=== PATIENT | male | born 1975 | race Asian ===

== ENCOUNTER 2016-08-22 19:24 | Emergency (ER) | payer SELFPAY ==
[~2016-08-22] VITALS: Ht 190.5 cm; Wt 86.2 kg
[2016-08-22] MEDS ORDERED: NKM (19:37)
[2016-08-22 19:40] VITALS: BP 149/89
[2016-08-22] MEDS ORDERED: Dicyclomine HCl 10mg/5ml oral soln ORAL ONE (19:45)
[2016-08-22] MEDS ORDERED: Lidocaine 2% Visc 15ml soln ORAL ONE (19:45)
[2016-08-22] MEDS ORDERED: DuoNeb 0.5-3(2.5)mg/3ml neb HHN ONE (20:15)
[2016-08-22] MEDS ORDERED: Famotidine 20 MG/ 2ML VIAL IVP ONE (20:45)
--- NOTE | 2016-08-22 21:19 | Emergency Room Report ---
History of Present Illness General Chief Complaint: Chest Pain Source: Patient Present Illness HPI Patient is a 40-year-old male who presented after increased chest pain. Patient gradual onset of symptoms . Patient reported having sharp pain to the chest area. Patient also reported having multiple episodes of hematemesis. Patient stated he had vomited daily for the past 10 days. This was noted to have some blood. The patient had history of alcohol abuse and had been drinking alcohol for many days. He denied any fever. Allergies: Coded Allergies: No Known Allergies (Unverified , 08/22/16) Patient History Past Medical History: see triage record Reviewed Nursing Documentation: PMH: Agreed, PSxH: Agreed Nursing Documentation-PMH Past Medical History: No Stated History Review of Systems All Other Systems: negative except mentioned in HPI Physical Exam Vital Signs Date Time Temp Pulse Resp B/P Pulse Ox O2 Delivery O2 Flow Rate FiO2 08/22/16 19:35 77 16 149/89 96 Room Air 08/22/16 20:26 21 Sp02 EP Interpretation: reviewed, normal General Appearance: normal inspection, well appearing, no apparent distress, alert, GCS 15 Head: atraumatic ENT: normal ENT inspection, hearing grossly normal, normal voice Neck: normal inspection, full range of motion, supple, no bony tend Respiratory: normal inspection, lungs clear, normal breath sounds, no respiratory distress, no retraction, no wheezing Cardiovascular #1: regular rate, rhythm, no edema Gastrointestinal: normal inspection, normal bowel sounds, non tender, soft, no guarding, no hernia Genitourinary: no CVA tenderness Musculoskeletal: normal inspection, back normal, normal range of motion Neurologic: normal inspection, alert, oriented x3, responsive, roving changer III-XII nml as tested, speech normal Psychiatric: normal inspection, judgement/insight normal, mood/affect normal Skin: normal inspection, normal color, no rash Medical Decision Making Diagnostic Impression: Primary Impression: Gastritis ER Course Patient presented for chest pain. Differential diagnosis included but was not limited to acute coronary syndrome, pulmonary embolism, pneumonia, aortic dissection, shingles, pneumothorax, aortic dissection, esophageal rupture, pericarditis. Because of complexity of patient's case laboratory testing and imaging studies were ordered.The patient started on IV acid blockers. Patient was advised alcohol cessation. EKG interpreted by me showed NSR no acute st changes. CXR 1 view interpreted by me showed no pneumothorax, normal cardiac size, no effusion. Patient was advised alcohol cessation. He was advised to return for dizziness, increased amount of bleeding or other concerns. Labs Test 08/22/16 20:58 White Blood Count 9.8 K/UL (4.8-10.8) Red Blood Count 4.76 M/UL (4.70-6.10) Hemoglobin 16.6 G/DL (14.2-18.0) Hematocrit 45.7 % (42.0-52.0) Mean Corpuscular Volume 96 FL (80-99) Mean Corpuscular Hemoglobin 35.0 PG (27.0-31.0) Mean Corpuscular Hemoglobin Concent 36.3 G/DL (32.0-36.0) Red Cell Distribution Width 12.0 % (11.6-14.8) Platelet Count 206 K/UL (150-450) Mean Platelet Volume 8.6 FL (6.5-10.1) Neutrophils (%) (Auto) 58.5 % (45.0-75.0) Lymphocytes (%) (Auto) 31.5 % (20.0-45.0) Monocytes (%) (Auto) 7.2 % (1.0-10.0) Eosinophils (%) (Auto) 2.0 % (0.0-3.0) Basophils (%) (Auto) 0.8 % (0.0-2.0) Prothrombin Time 9.8 SEC (9.30-11.50) Prothromb Time International Ratio 1.0 (0.9-1.1) Activated Partial Thromboplast Time 25 SEC (23-33) Urine Color Pale yellow Urine Appearance Clear Urine pH 7 (4.5-8.0) Urine Specific [facility] 1.015 (1.005-1.035) Urine Protein Negative (NEGATIVE) Urine Glucose (UA) Negative (NEGATIVE) Urine Ketones Negative (NEGATIVE) Urine Occult Blood Negative (NEGATIVE) Urine Nitrite Negative (NEGATIVE) Urine Bilirubin Negative (NEGATIVE) Urine Urobilinogen 1 MG/DL (0.0-1.0) Urine Leukocyte Esterase Negative (NEGATIVE) Sodium Level 139 mEQ/L (135-145) Potassium Level 3.9 mEQ/L (3.4-4.9) Chloride Level 98 mEQ/L (98-107) Carbon Dioxide Level 26 mEQ/L (20-30) Anion Gap 15 (5-15) Blood Urea Nitrogen 15 mg/dL (7-23) Creatinine 1.0 mg/dL (0.7-1.2) Estimat Glomerular Filtration Rate > 60 mL/min (>60) Glucose Level 109 mg/dL (74-106) Calcium Level 9.4 mg/dL (8.6-10.2) Total Bilirubin 0.3 mg/dL (0.0-1.2) Aspartate Amino Transf (AST/SGOT) 16 U/L (5-40) Alanine Aminotransferase (ALT/SGPT) 12 U/L (3-41) Alkaline Phosphatase 76 U/L (40-129) Troponin I < 0.30 ng/mL (<=0.30) Total Protein 6.7 g/dL (6.6-8.7) Albumin 4.0 g/dL (3.5-5.2) Globulin 2.7 g/dL Albumin/Globulin Ratio 1.4 (1.0-2.7) Lipase 22 U/L (< 60) Last Vital Signs Date Time Temp Pulse Resp B/P Pulse Ox O2 Delivery O2 Flow Rate FiO2 08/22/16 20:27 68 18 100 Room Air 08/22/16 20:26 21 08/22/16 19:35 149/89 Status: improved Disposition: HOME, SELF-CARE Condition: Stable Scripts Famotidine (PEPCID) 20 Mg Tablet 20 MG ORAL DAILY, #14 TAB 0 Refills Prov: Jose Heredia 08/22/16 Jose Heredia August 22, 2016 21:19
[2016-08-22 21:25] LABS: BASOPHILS % (AUTO) 0.8 % (0.0-2.0); LYMPHOCYTES % (AUTO) 31.5 % (20.0-45.0); MEAN CORPUSCULAR HGB CONC 36.3 G/DL (32.0-36.0); MEAN CORPUSCULAR VOLUME 96 FL (80-99); MEAN PLATELET VOLUME 8.6 FL (6.5-10.1); MONOCYTES % (AUTO) 7.2 % (1.0-10.0); NEUTROPHILS % (AUTO) 58.5 % (45.0-75.0); PLATELET COUNT 206 K/UL (150-450); RED BLOOD COUNT 4.76 M/UL (4.70-6.10); WHITE BLOOD COUNT 9.8 K/UL (4.8-10.8)
[2016-08-22 21:33] LABS: APPEARANCE,URINE CLEAR; KETONES,URINE NEGATIVE (NEGATIVE); LEUKOCYTE ESTERASE ,URINE NEGATIVE (NEGATIVE); NITRITE,URINE NEGATIVE (NEGATIVE); PH,URINE 7 (4.5-8.0); PROTEIN,URINE NEGATIVE (NEGATIVE); UROBILINOGEN,URINE 1 MG/DL (0.0-1.0)
[2016-08-22 21:40] VITALS: BP 139/76
[2016-08-22 21:43] LABS: PROTHROMBIN TIME 9.8 SEC (9.30-11.50)
[2016-08-22] MEDS ORDERED: PEPCID20 MG ORAL (21:43)
[2016-08-22 21:51] LABS: ALANINE AMINOTRANSFERASE 12 U/L (3-41); ALBUMIN/GLOBULIN RATIO 1.4 (1.0-2.7); ANION GAP 15 (5-15); ASPARTATE AMINO TRANSFERASE 16 U/L (5-40); CALCIUM 9.4 mg/dL (8.6-10.2); CARBON DIOXIDE 26 mEQ/L (20-30); CHLORIDE 98 mEQ/L (98-107); GLOMERULAR FILTRATION RATE > 60 mL/min (>60); HEMOLYSIS 20; LIPASE 22 U/L (< 60); POTASSIUM 3.9 mEQ/L (3.4-4.9); SODIUM 139 mEQ/L (135-145); TOTAL PROTEIN 6.7 g/dL (6.6-8.7); TROPONIN I < 0.30 ng/mL (<=0.30)
[2016-08-22 22:30] VITALS: BP_SYST 140; BP_SYST 144; BP_DIAS 79; BP_DIAS 83
--- NOTE | 2016-08-23 11:42 | Diagnostic Imaging Report ---
Indication: Shortness of breath Comparison: None A single view chest radiograph was obtained. Findings: Suspected infiltrate in the medial aspect of the right upper lobe. Heart is borderline enlarged. Bones are unremarkable. Impression: Suspected infiltrate in the right upper lobe.
--- NOTE | 2016-08-23 14:15 | Cardiology Report ---
APPROVED REPORT EKG Measurement Heart [id number] Sinus rhythm with 1st degree AV block Otherwise normal ECG
== END 2016-08-22 22:30 | disposition home or self-care (01) ==
LOC: EMR 21:49
DX: K29.70 Gastritis, unspecified, without bleeding (principal)
CPT/HCPCS: 36415; 71010; 80053; 81003; 83690; 84484; 85025; 85610; 85730; 86850; 86900; 86901; 93005; 94640; 94664; 96374; 99284; S0028; J7620